=== PATIENT | male | born 1985 | race African-American/Black ===

== ENCOUNTER 2017-07-23 15:26 | Emergency (ER) | payer SELFPAY ==
[~2017-07-23] VITALS: Ht 167.6 cm; Wt 72.6 kg
--- NOTE | 2017-07-23 16:11 | Emergency Room Report ---
History of Present Illness General Chief Complaint: Earache Source: Patient Present Illness HPI 32-year-old male patient presents to ER complaining of left ear pain for the past week. Patient reports decreased hearing in his ear. Patient denies vertigo or dizziness or other symptoms. Denies vision changes. Patient reports history using Q-tips. Patient reports no headache, chest pain, shortness breath , fever, nausea, vomiting, rash. patient reports taking NSAIDs for pain relief. Allergies: Coded Allergies: No Known Allergies (Unverified , 07/23/17) Patient History Past Medical History: see triage record Reviewed Nursing Documentation: PMH: Agreed; PSxH: Agreed Nursing Documentation-PMH Past Medical History: No Stated History Review of Systems All Other Systems: negative except mentioned in HPI Physical Exam Vital Signs Date Time Temp Pulse Resp B/P (MAP) Pulse Ox O2 Delivery O2 Flow Rate FiO2 07/23/17 15:55 98.2 60 18 121/82 98 Room Air 98.2 Sp02 EP Interpretation: reviewed, normal General Appearance: well appearing, no apparent distress, alert, GCS 15, non- toxic Head: normocephalic, atraumatic, other - no mastoid erythema or TTP bilaterally Eyes: bilateral eye normal inspection, bilateral eye PERRL ENT: hearing grossly normal, normal pharynx, no angioedema, normal voice, TMs + canals normal - right ear: excessive cerumen, uvula midline, moist mucus membranes, other - left ear: cerumen impaction Neck: full range of motion Respiratory: lungs clear, normal breath sounds, no rhonchi, no respiratory distress, no accessory muscle use, no wheezing, speaking full sentences Cardiovascular #1: regular rate, rhythm, no edema Psychiatric: mood/affect normal Skin: no rash Medical Decision Making PA Attestation Dr. Singh is my supervising Physician whom patient management has been discussed with. Diagnostic Impression: Primary Impression: Cerumen impaction ER Course Pt presents to ED c/o left ear pain. DDX considered but are not limited to rhinitis, sinusitis, otitis media, otitis externa, cerumen impaction. VITAL SIGNS are WNL, patient is afebrile. Ordered hydrogen peroxide. ED INTERVENTIONS: PE shows impacted cerumen in left ear, right ear excessive cerumen, able to visualize right TM, no erythema, no loss of light reflex. No mastoid swelling or erythema, no rash or vesicles. Patient ear cleaned and flushed with saline and hydrogen peroxide. Following cleaning, left ear TM visualized, no erythema, no perforation; ear canal no edema, no erythema. Low suspicion for otitis media, does not require abx at this time, continue to take Tylenol for sx relief. Patient reports able to ear out of ear. Patient instructed not to use Q-tips. Follow-up with primary care provider for further treatment and referral. Discuss referral to ENT. DISCHARGE: Rx provided for Debrox At this time pt is stable for d/c to home. patient resting comfortably, no acute distress, nontoxic appearing, talking without difficulty, smiling. Patient to take medications as instructed Will provide with patient care instructions and any necessary prescriptions. Care plan and follow-up instructions provided. Patient instructed to follow-up with primary care in 3 - 5 days. Patient questions asked and answered. patient reports understanding and agreement treatment plan. ER precautions given. Patient instructed to return to ER immediately for any new or worsening of symptoms including but not limited to increasing SOB, persistent fever. - Please note that this Emergency Department Report was dictated using [employer] machine operator technology software, occasionally this can lead to erroneous entry secondary to interpretation by the dictation equipment. Last Vital Signs Date Time Temp Pulse Resp B/P (MAP) Pulse Ox O2 Delivery O2 Flow Rate FiO2 07/23/17 15:55 98.2 60 18 121/82 98 Room Air 98.2 Disposition: HOME, SELF-CARE Condition: Stable Scripts Carbamide Peroxide (DEBROX) 15 Ml Drops 5 DROP BOTH EARS TWICE A DAY for 4 Days, ML 0 Refills Prov: Robi Ghotra 07/23/17 Referrals: NOT CHOSEN [facility]/MD,REFERRING (PCP) Patient Instructions: Cerumen Impaction Additional Instructions: Followup with primary care provider in 3 -5 days. Discuss referral to ENT as needed. Do not use Q-tips. Take medications as directed. Patient questions asked and answered. ER precautions given, patient instructed to return to ER immediately for any new or worsening of symptoms. Robi Ghotra July 23, 2017 16:11
[2017-07-23 16:15] VITALS: BP 121/82
[2017-07-23] MEDS ORDERED: Hydrogen Peroxide 473ml Bottle TOPIC ONE (16:15)
[2017-07-23] MEDS ORDERED: DEBROX15 M1 BOTH EARS (16:18)
[2017-07-23 17:02] VITALS: BP 121/82
== END 2017-07-23 17:03 | disposition home or self-care (01) ==
LOC: EMR 15:56
DX: H61.22 Impacted cerumen, left ear (principal)
CPT/HCPCS: 99283